=== PATIENT | female | born 1940 | race Caucasian/White ===

== ENCOUNTER 2022-01-22 19:05 | Inpatient (IN) | payer OTHER ==
[~2022-01-22] VITALS: Ht 165.1 cm; Wt 72.1 kg
[2022-01-22] MEDS ORDERED: ACET-2247 PO (19:51)
[2022-01-22] MEDS ORDERED: CEPH500C3 PO (19:51)
[2022-01-22] MEDS ORDERED: TRIA15CR49 TP (19:51)
[2022-01-22] MEDS ORDERED: LACT10SO62 PO (19:51)
[2022-01-22] MEDS ORDERED: SIME80TA14 PO (19:51)
[2022-01-22] MEDS ORDERED: MOM30 PO (19:51)
[2022-01-22] MEDS ORDERED: HYDR-4400 PO (19:51)
[2022-01-22] MEDS ORDERED: METF-1211 PO (19:51)
[2022-01-22] MEDS ORDERED: BISA10SU11 PR (19:51)
[2022-01-22] MEDS ORDERED: AMYL1CAP66 PO (19:51)
[2022-01-22] MEDS ORDERED: [UNRECOGNIZED DRUG - OTHER] (19:51)
[2022-01-22] MEDS ORDERED: ONDA-104 PO (19:51)
[2022-01-22] MEDS ORDERED: ATOR20TA86 PO (19:51)
[2022-01-22] MEDS ORDERED: FURO20 PO (19:51)
[2022-01-22] MEDS ORDERED: MELA5TAB40 PO (19:51)
[2022-01-22 20:16] LABS: BASOPHILS % (AUTO) 0.3 % (0.0-2.0); EOSINOPHILS % (AUTO) 1.8 % (1.0-6.0); HEMATOCRIT 42.6 % (36-46); HEMOGLOBIN 13.9 g/dL (12.0-16.0); LYMPHOCYTES % (AUTO) 19.6 % (22.0-44.0); MEAN CORPUSCULAR HGB CONC 32.5 G/dL (31.0-37.0); MEAN CORPUSCULAR VOLUME 86 fL (80-100); MONOCYTES # (AUTO) 0.8 K/uL (0.1-1.0); MONOCYTES % (AUTO) 7.3 % (2.0-9.0); NEUTROPHILS # (AUTO) 7.4 K/uL (1.8-7.7); PLATELET COUNT (AUTO) 356 K/uL (150-450); RED BLOOD CELL COUNT(AUTO) 4.95 MIL/uL (4.00-5.20); RED CELL DISTRIBUTION WIDTH 15.9 % (11.5-14.5)
[2022-01-22] MEDS ORDERED: MICO45CR44 VG (20:21)
[2022-01-22 20:26] LABS: ANION GAP 8 mmol/L (8-16); CALCIUM, TOTAL 9.2 mg/dL (8.8-10.5); CARBON DIOXIDE 30 mmol/L (22-29); CHLORIDE 98 mmol/L (98-107); CREATININE 0.82 mg/dL (0.60-1.30); POTASSIUM 3.8 mmol/L (3.5-5.1); SODIUM SERUM 136 mmol/L (136-145); UREA NITROGEN, BLOOD 20 mg/dL (7-18)
[2022-01-22 20:28] LABS: GLOMERULAR FILTR. RATE CALC > 60 mL/min (>60); GLUCOSE,RANDOM 416 mg/dL (70-110)
[2022-01-22] MEDS ORDERED: SODIUM CHLORIDE 0.9% 1,000 ML IV ONE (20:30)
[2022-01-22] MEDS ORDERED: ONDANSETRON HCL 4 MG/2 ML VIAL IVP PRN ×3 (20:30→22:00)
[2022-01-22 20:58] LABS: COVID AG,FIA SOURCE NASOPHARYNGEAL
[2022-01-22 21:37] VITALS: BP 128/74
[2022-01-22] MEDS ORDERED: DEXTROSE 50%-WATER 25 GM/50 ML SYRINGE IVP PRN (23:15)
[2022-01-23] MEDS: INSULIN LISPRO 100 UNITS/ML SQ PRN ×5 (00:18→20:17)
[2022-01-23] MEDS: MAGNESIUM SULFATE 2 GM, MVI, ADULT NO.1 WITH VIT K 10 ML, THIAMINE 100 MG, FOLIC ACID 1... IV SCH ×10 (00:20→20:17)
[2022-01-23 00:21] LABS: GLUCOMETER DEV NAME(LOC) 6N.1; GLUCOSE,POINT OF CARE 363 MG/DL (70-110)
[2022-01-23 05:52] LABS: GLUCOMETER DEV NAME(LOC) 6N.1; GLUCOSE,POINT OF CARE 273 MG/DL (70-110)
[2022-01-23] MEDS: HEPARIN SODIUM,PORCINE 5,000 UNITS/ML VIAL SQ SCH ×4 (08:00→23:29)
[2022-01-23 08:09] VITALS: BP 120/76
[2022-01-23 08:35] LABS: APPEARANCE,URINE SLIGHTLY CLOUDY (CLEAR); BILIRUBIN,URINE NEGATIVE (NEGATIVE); GLUCOSE, URINE (UA) 500 mg/dL (NEGATIVE); OCCULT BLOOD,URINE MODERATE (NEGATIVE); PH,URINE 5.5 (5.0-8.0); PROTEIN,URINE 30-70 (NEGATIVE)
[2022-01-23 08:36] LABS: KETONES,URINE TRACE mg/dL (NEGATIVE); LEUKOCYTE ESTERASE ,URINE MODERATE (NEGATIVE); NITRATE,URINE NEGATIVE (NEGATIVE); UROBILINOGEN,URINE 0.2 mg/dL (<=1.0)
[2022-01-23 08:37] LABS: BACTERIA,URINE Many /HPF (None Seen); SQUAMOUS EPITHELIAL CELL,UR Moderate /LPF (None Seen); YEAST,URINE Moderate /HPF (None Seen)
[2022-01-23] MEDS: INSULIN GLARGINE,HUM.REC.ANLOG 100 UNITS/ML SQ SCH (08:43)
[2022-01-23 11:54] LABS: GLUCOMETER DEV NAME(LOC) 6N.1; GLUCOSE,POINT OF CARE 228 MG/DL (70-110)
[2022-01-23] MEDS: CefTRIAXone 1 GM/DEXTROSE 50 ML IV SCH (13:46)
[2022-01-23 16:14] VITALS: BP 126/79
[2022-01-23 19:49] VITALS: BP 120/61
[2022-01-23] MEDS: ACETAMINOPHEN 500 MG TABLET PO PRN (22:49)
[2022-01-23 23:21] LABS: GLUCOMETER DEV NAME(LOC) 6N.2; GLUCOSE,POINT OF CARE 180 MG/DL (70-110)
[2022-01-23 23:21] LABS: GLUCOMETER DEV NAME(LOC) 6N.1; GLUCOSE,POINT OF CARE 162 MG/DL (70-110)
[2022-01-24] MEDS: INSULIN LISPRO 100 UNITS/ML SQ PRN ×4 (05:09→21:13)
[2022-01-24 05:33] VITALS: BP 132/68
[2022-01-24 06:51] LABS: GLUCOMETER DEV NAME(LOC) 4E.2; GLUCOSE,POINT OF CARE 295 MG/DL (70-110)
[2022-01-24] MEDS ORDERED: SODIUM CHLORIDE 0.9% 1,000 ML ONE (06:58)
[2022-01-24] MEDS: HEPARIN SODIUM,PORCINE 5,000 UNITS/ML VIAL SQ SCH ×2 (09:09→16:09)
[2022-01-24 09:13] VITALS: BP 139/71
[2022-01-24] MEDS: INSULIN GLARGINE,HUM.REC.ANLOG 100 UNITS/ML SQ SCH (09:16)
[2022-01-24 10:06] LABS: GLUCOMETER DEV NAME(LOC) 4E.2; GLUCOSE,POINT OF CARE 249 MG/DL (70-110)
[2022-01-24 11:31] LABS: GLUCOMETER DEV NAME(LOC) 4E.2; GLUCOSE,POINT OF CARE 241 MG/DL (70-110)
[2022-01-24] MEDS ORDERED: INSU100V SQ ×2 (12:08→13:35)
[2022-01-24] MEDS ORDERED: SODIUM CHLORIDE 0.9% 250 ML IV ONE (14:02)
[2022-01-24] MEDS: CefTRIAXone 1 GM/DEXTROSE 50 ML IV SCH (14:04)
[2022-01-24 16:02] VITALS: BP 129/75
[2022-01-24] MEDS: MAGNESIUM SULFATE 2 GM, MVI, ADULT NO.1 WITH VIT K 10 ML, THIAMINE 100 MG, FOLIC ACID 1... IV SCH ×5 (16:10)
[2022-01-24] MEDS: ACETAMINOPHEN 500 MG TABLET PO PRN (17:53)
[2022-01-24 19:12] LABS: GLUCOMETER DEV NAME(LOC) 6N.2; GLUCOSE,POINT OF CARE 146 MG/DL (70-110)
[2022-01-24 20:05] VITALS: BP 113/59
[2022-01-24 22:06] LABS: GLUCOMETER DEV NAME(LOC) 6N.2; GLUCOSE,POINT OF CARE 159 MG/DL (70-110)
[2022-01-25] MEDS: HEPARIN SODIUM,PORCINE 5,000 UNITS/ML VIAL SQ SCH ×3 (00:15→15:29)
[2022-01-25 04:58] VITALS: BP 121/63
[2022-01-25] MEDS ORDERED: PROPOFOL 1% 20 ML VIAL IVP ONE (05:47)
[2022-01-25] MEDS: INSULIN LISPRO 100 UNITS/ML SQ PRN ×2 (06:09→11:55)
[2022-01-25 06:46] LABS: GLUCOMETER DEV NAME(LOC) 4E.2; GLUCOSE,POINT OF CARE 193 MG/DL (70-110)
[2022-01-25 08:54] VITALS: BP 141/74
[2022-01-25] MEDS: INSULIN GLARGINE,HUM.REC.ANLOG 100 UNITS/ML SQ SCH (09:38)
[2022-01-25] MEDS: CefTRIAXone 1 GM/DEXTROSE 50 ML IV SCH (13:55)
[2022-01-25 14:41] LABS: GLUCOMETER DEV NAME(LOC) 4E.2; GLUCOSE,POINT OF CARE 230 MG/DL (70-110)
== END 2022-01-25 17:25 | DRG 252 ==
LOC: EMS 19:09 → 6S 20:27
PROVIDERS: ADMIT Internal Medicine; ATTEND Internal Medicine
PROC: 0DH63UZ Insertion of Feeding Device into Stomach, Percutaneous Approach (ICD-10-PCS; principal; 2022-01-24 08:00)
DX: K94.23 Gastrostomy malfunction (principal); G93.41 Metabolic encephalopathy; N39.0 Urinary tract infection, site not specified; R13.12 Dysphagia, oropharyngeal phase; E11.65 Type 2 diabetes mellitus with hyperglycemia; Z20.822 Contact with and (suspected) exposure to COVID-19; E78.00 Pure hypercholesterolemia, unspecified; I11.0 Hypertensive heart disease with heart failure; I50.32 Chronic diastolic (congestive) heart failure; K29.70 Gastritis, unspecified, without bleeding; Z79.84 Long term (current) use of oral hypoglycemic drugs; Z79.899 Other long term (current) drug therapy; Z85.3 Personal history of malignant neoplasm of breast
CPT/HCPCS: 70450; 80048; 81001; 82140; 82962; 85025; 87081; 87086; 97162; 97165; 99285; J0696; J1644; J1815; J2405; J2704; J3411; J3475; J3490; J7030; J7050; 36415-L1; 36415-TC